=== PATIENT | female | born 1955 | race Caucasian/White ===

== ENCOUNTER 2016-06-28 10:07 | Emergency (ER) | payer MEDICARE ==
--- NOTE | ~2016-06-28 | EKG ---
PATIENT: DESHAWN GONZALES UNIT #: [id number] Ventricular Rate: 135 BPM Atrial Rate: 135 BPM P-R Interval: 168 ms QRS Duration: 90 ms Q-T Interval: 280 ms QTC Calculation(Bezet): 420 ms P [place]: 68 degrees Calculated R [place]: 82 degrees Calculated T [place]: -78 degrees Diagnosis Line: Sinus tachycardia Diagnosis Line: T wave abnormality, consider inferior ischemia Diagnosis Line: Abnormal ECG Diagnosis Line: When compared with ECG of 20-JUN-2013 04:54, Diagnosis Line: T wave inversion now evident in Inferior leads Diagnosis Line: Nonspecific T wave abnormality now evident in Diagnosis Line: Anterolateral leads Diagnosis Line: Confirmed by BETHANY LARSON MD ([id number]) on 07/01/2016 Diagnosis Line: 10:45:26 PM INTERPRETING MD: MARSHA KEANE
--- NOTE | ~2016-06-28 | CR72 ---
[facility] A Service [facility] RADIOLOGY TEXT RESULTS PATIENT: DESHAWN GONZALES LOCATION: [facility] : 57 UNIT #: [id number] AGE: [address]: Sajan Trinidad MD SEX: F ORDER DR: [id number] [facility] [address] [place], [place] [address] [id number] E MR#: [id number] #: [id number] NAME: DESHAWN GONZALES. : 1955 SEX: F STUDY DATE/TIME: 06/28/2016 9:47 UNIT: [facility] ROOM: STUDY DESCRIPTION: CR Chest Single View Portable Attending Physician: Sajan Trinidad M.D. Ordering Physician: Sajan Trinidad M.D. Primary Care Physician: Deo Galvin M.D. MEDICAL IMAGING REPORT This report is preliminary unless electronic signature is present EXAM Portable chest, 06/28/2016. COMPARISON 05/19/2016 HISTORY Respiratory distress. Shortness of breath today. FINDINGS An AP view is obtained. The heart size is normal. The patient has developed bilateral infiltrates and evidence of interstitial edema and passive congestion. Right-sided PICC line tip is in the SVC. CONCLUSION Development of bilateral pulmonary parenchymal infiltrates with interstitial edema and passive congestion most likely this reflects congestive heart failure. Infectious processes certainly are in the differential but less likely. Dictated by... Merritt Quach M.D. THIS IS AN ELECTRONICALLY VERIFIED REPORT Merritt Quach M.D. at 07/01/2016 2:43 PM ROLAND/norma TD: 06/28/2016 10:34 JOB #: [id number] MEDICAL IMAGING REPORT [facility] A Service [facility] RADIOLOGY TEXT RESULTS PATIENT: DESHAWN GONZALES LOCATION: [facility] : 57 UNIT #: [id number] AGE: [address]: Sajan Trinidad MD SEX: F ORDER DR: Page 1 of 1 COPY
[~2016-06-28 10:07] MED LIST: ACETAMINOPHEN PO; ALBUTEROL17 GM INH; ALLEGRA PO; AMOXICILLIN500 M1 PO; ASPIRIN81 MG PO; ATORVASTATIN CA10 MG PO; BACTRIM DS TABL1 TA1 PO; BLOOD PRESSURE PO; BUDEPRION SR100 M1 PO; CARVEDILOL6.25 MG PO; CIPRO PO; CLARITIN10 M2 PO; CLOPIDOGREL75 MG PO; COLACE PO; DELTASONE20 MG PO; DIFLUCAN PO; DOC-Q-LACE100 MG PO; DOXYCYCLINE HY100 M1 PO; DOXYCYCLINE PO; FISH OIL 1,2001 CAP PO; FUROSEMIDE40 MG PO; GABAPENTIN300 MG PO; GABAPENTIN400 MG PO; HUMALOG MIX 75/10 ML SUBQ; HUMALOG100 U/M2 INJ; HUMALOG100 U/ML SUBQ; HUMULIN 70/30 V10 ML; HUMULIN 70100 UNITS/ SUBQ; IMDUR-ER30 MG PO; LANTUS100 U/ML INJ; LEVAQUIN750 MG PO; LIPITOR20 MG PO; LISINOPRIL2.5 MG PO; LISINOPRIL5 MG PO; LOPRESSOR PO; LORTAB ELIXIR15 ML PO; LYRICA75 MG PO; METFORMIN HCL500 M1 PO; MILK OF MAGNESIA PO; MOBIC PO; MULTIPLE VITAMI1 T10 PO; NEURONTIN PO; NICOTINE T1 PATCH .2 TOP; NITROSTAT0.4 MG SL; NOVOLIN 70/30 V10 M1 SQ; NOVOLIN 70100 UNITS/ SUBQ; NOVOLOG7030 SUBQ; OMEPRAZOLE20 M2 PO; OSENI 25-15 MG1 EACH PO; PLAVIX PO; PRAVASTATIN SOD20 MG PO; PRAVASTATIN SOD40 MG PO; PREDNISONE PO; PROAIR HFA8.5 GM INH; PROMETHAZINE D118 ML PO; SYMBICORT; VENLAFAXINE HC150 MG PO; VIBRAMYCIN100 M1 PO; VICODIN 5/1 TAB 5/50 PO; WELLBUTRIN PO; ZITHROMAX PO; [UNRECOGNIZED DRUG - OTHER] PO
[2016-06-28 10:49] LABS: BASOPHIL# 0.1 X10e3 (0-0.3); BASOPHIL% 0.5 % (0-2.5); DIFF IND YES; EOSINOPHIL% 0.2 % (0.0-7.0); HEMATOCRIT 23.5 % (35.0-45.0); HEMOGLOBIN 7.5 gm/dL (12.0-16.0); LYMPHOCYTE# 0.7 X10e3 (1.0-3.5); LYMPHOCYTE% 4.3 % (17.0-45.0); MEAN CELL VOLUME 95.7 FL (83-96); MEAN CORPUSCULAR HEMOGLOBIN 30.7 PG (28-34); MEAN CORPUSCULAR HGB CONC 32.1 g/dL (30-36); MEAN PLATELET VOLUME 7.4 FL (6.5-11.5); MONOCYTE# 0.5 X10e3 (0-1.0); MONOCYTE% 2.8 % (3.0-12.0); NEUTROPHIL# 15.4 X10e3 (1.5-7.1); NEUTROPHIL% 92.2 % (40-75); PLATELET COUNT 429 X10e3 (140-420); RED BLOOD COUNT 2.45 X10e (3.90-5.30); RED CELL DISTRIBUTION WIDTH 17.7 % (11.0-15.5); WHITE BLOOD COUNT 16.7 X10e3 (4.0-10.5)
[2016-06-28 11:11] LABS: URINE SOURCE CLEAN CATCH
[2016-06-28 11:20] LABS: INR 1.1; PROTHROMBIN TIME (PATIENT) 11.2 SECONDS (9.6-11.5)
[2016-06-28 11:31] LABS: ALBUMIN SERUM 2.2 g/dL (3.5-5.0); BILIRUBIN, DIRECT 0.2 mg/dL (0.0-0.2); BILIRUBIN,INDIRECT 0.4 mg/dL (0.0-0.9); BILIRUBIN,TOTAL 0.6 mg/dL (0.2-2.0); BUN/CREATININE RATIO 8.33; CREATININE SERUM 0.6 mg/dL (0.6-1.4); GLOM FILT RATE Estimated 99.8 mL/min (>60); POTASSIUM 4.2 mmol/L (3.5-5.1); PROTEIN TOTAL SERUM 6.7 g/dL (6.0-8.3)
[2016-06-28 11:55] LABS: URINE APPEARANCE CLOUDY; URINE BILIRUBIN NEG (NEG); URINE BLOOD NEG (NEG); URINE COLOR YELLOW; URINE GLUCOSE >1000 MG/DL (NEG); URINE KETONE TRACE (NEG); URINE LEUKOCYTE ESTERASE NEG (NEG); URINE NITRATE NEG (NEG); URINE PROTEIN 1+ (NEG); URINE SPECIFIC GRAVITY 1.017 (1.003-1.035); URINE UROBILINOGEN 0.2 MG/DL (NEG)
[2016-06-28 11:58] LABS: URINE BACTERIA AUWI NEG (NEGATIVE); URINE SQUAMOUS EPITHELIAL CELL FEW /[HPF]
[2016-06-28 12:11] LABS: CULTURE INDICATED? NO; U HYALINE CASTS AUWI 0-2 /[LPF]
[2016-06-28 12:12] LABS: URINE YEAST PRESENT
[2016-06-28 13:00] LABS: ANISOCYTOSIS SL; HYPOCHROMIA SL; PLATELET ESTIMATE NORMAL (NORMAL)
== END 2016-06-28 11:15 | disposition hospice, home (50) ==
LOC: CED 10:07
PROVIDERS: Emergency Medicine
DX: I25.10 Atherosclerotic heart disease of native coronary artery without angina pectoris (principal); I50.9 Heart failure, unspecified; E11.9 Type 2 diabetes mellitus without complications; R06.02 Shortness of breath
CPT/HCPCS: 36415; 51702; 71010; 80048; 80076; 81003; 82947; 83605; 85025; 85610; 85730; 87040; 93005; 96374; 96375; 99291; J0692; J3370